=== PATIENT | female | born 1980 | race Caucasian/White ===

== ENCOUNTER 2016-11-03 23:22 | Emergency (ER) | payer OTHER ==
[2016-11-04 00:40] LABS: Basophils % (Auto) 0.8 % (0.0-1.8); Eosinophils % (Auto) 1.5 % (0.0-4.3); Hematocrit 36.6 % (30.3-42.9); Hemoglobin 11.5 gm/dl (10.1-14.3); Mean Corpuscular HGB Conc 32 % (30-34); Mean Corpuscular Volume 78 fl (79-97); Platelet Count 313 K/mm3 (140-440); Red Blood Count 4.69 M/mm3 (3.65-5.03); Red Cell Distribution Width 14.7 % (13.2-15.2); White Blood Count 14.7 K/mm3 (4.5-11.0)
[2016-11-04 00:55] LABS: Anion Gap 19 mmol/L; Blood Urea Nitrogen 6 mg/dL (7-17); Calcium 9.5 mg/dL (8.4-10.2); Carbon Dioxide 23 mmol/L (22-30); Chloride 99.4 mmol/L (98-107); Glucose 173 mg/dL (65-100); Potassium 3.9 mmol/L (3.6-5.0); Sodium 137 mmol/L (137-145)
[2016-11-04 01:00] LABS: Mean Corpuscular Hemoglobin 25 pg (28-32)
[2016-11-04] MEDS ORDERED: MOTRIN PO ONE (02:02)
--- NOTE | 2016-11-04 02:06 | Emergency Department Report ---
<LADARIUS LEWIS - Last Filed: 11/04/16 02:02> ED Chest Pain HPI - General Chief Complaint: Chest Pain Stated Complaint: CHEST PAIN Time Seen by Provider: 11/04/16 01:59 Source: patient, family Mode of arrival: Ambulatory Limitations: No Limitations - History of Present Illness Initial Comments: Patient is a 36-year-old female with no past medical history presenting today because of sudden onset left-sided chest pain that sharp and radiating to her left shoulder. Patient states that this pain started at 10 PM while she was not doing any specific activity. She states that the pain is pleuritic on the left side and worse with palpation of the area. She no difficulty breathing, cough, fevers. Has no family history of coronary artery disease. No family history of blood clots. She's not had any recent immobilization, extended bed rest, long trips, no oral contraceptive pills, no history of cigarette smoking. - Related Data Allergies Allergy/AdvReac Type Severity Reaction Status Date / Time No Known Allergies Allergy Verified 11/03/16 23:52 DAVON score - Davon Score Age > 65: (0) No Aspirin use within the Past 7 Days: (0) No 3 or more CAD Risk Factors: (0) No 2 or more Angina events in past 24 hrs: (0) No Known CAD with more than 50% Stenosis: (0) No Elevated Cardiac Markers: (0) No ST Deviation Greater than 0.5mm: (0) No DAVON Score: 0 ED Review of Systems ROS: Stated complaint: CHEST PAIN Other details as noted in HPI Comment: All other systems reviewed and negative Constitutional: denies: chills, fever ENT: denies: ear pain Respiratory: denies: cough, shortness of breath Cardiovascular: chest pain Gastrointestinal: denies: abdominal pain, vomiting Genitourinary: denies: urgency, dysuria Musculoskeletal: denies: back pain Skin: denies: rash Neurological: denies: headache Psychiatric: denies: anxiety ED Past Medical Hx - Past Medical History Previous Medical History?: Yes Hx Hypertension: Yes - Surgical History Past Surgical History?: No - Social History Smoking Status: Never Smoker Substance Use Type: None ED Physical Exam - General Limitations: No Limitations General appearance: alert, in no apparent distress - Head Head exam: Present: atraumatic - ENT ENT exam: Present: normal exam - Neck Neck exam: Present: normal inspection - Respiratory Respiratory exam: Present: normal lung sounds bilaterally. Absent: respiratory distress - Cardiovascular Cardiovascular Exam: Present: regular rate, normal rhythm - GI/Abdominal GI/Abdominal exam: Present: soft. Absent: distended, tenderness - Neurological Exam Neurological exam: Present: alert - Psychiatric Psychiatric exam: Present: normal affect - Skin Skin exam: Present: intact ED Course Vital Signs 11/03/16 23:52 Temperature 98.7 F Pulse Rate 94 H Respiratory 20 Rate Blood Pressure 143/87 O2 Sat by Pulse 100 Oximetry ED Medical Decision Making - Lab Data Result diagrams: 11/04/16 00:11 11/04/16 00:11 - Medical Decision Making Labs ordered, chest x-ray and d-dimer added. Patient has a low risk for a PE but does present with pleuritic chest pains or d-dimer will be used to rule out for considered the diagnosis of pulmonary embolism. Motrin also ordered as the pain appears to be muscle wall. EKG shows normal sinus rhythm without any ST-T changes. Critical care attestation.: If time is entered above; I have spent that time in minutes in the direct care of this critically ill patient, excluding procedure time. ED Disposition Clinical Impression: Chest pain Qualifiers: Chest pain type: chest pain on breathing Qualified Code(s): R07.1 - Chest pain on breathing Disposition: DISCHARGED TO HOME OR SELFCARE Condition: Stable Instructions: Chest Pain (ED) Referrals: PRIMARY CARE,MD [Primary Care Provider] - 3-5 Days <MIRELLA HOGAN I. - Last Filed: 11/04/16 06:29> ED Medical Decision Making - Lab Data Result diagrams: 11/04/16 00:11 11/04/16 00:11 ED Disposition Is pt being admited?: No
[2016-11-04] MEDS ORDERED: NACL ONE (03:13)
--- NOTE | 2016-11-04 05:55 | XRay Report ---
FINAL REPORT PROCEDURE: CT ANGIO CHEST TECHNIQUE: Computerized tomographic angiography of the chest was performed after the IV injection of iodinated nonionic contrast including image processing. The image data was postprocessed using 2-dimensional multiplanar reformatted (MPR) and 3-dimensional (MIP and/or volume rendered) techniques. HISTORY: pleuritic cp dimer COMPARISON: No prior studies are available for comparison. FINDINGS: Heart and pericardium: Normal. Thoracic aorta: Normal. Pulmonary vasculature: Normal. Lymph nodes: No enlarged thoracic lymph nodes. Lungs: Lungs are clear. No consolidation, effusion or pneumothorax. Pleural space: No effusion, thickening, or pneumothorax. Musculoskeletal structures: No significant abnormality. Upper abdominal structures: No significant abnormality. IMPRESSION: No evidence of pulmonary arterial emboli. The lungs are clear without infiltrate or effusion.
[2016-11-04 06:51] VITALS: BP 113/74
== END 2016-11-04 06:35 | disposition home or self-care (01) ==
LOC: ED 23:22
DX: R07.9 Chest pain, unspecified (principal); R07.1 Chest pain on breathing; I10 Essential (primary) hypertension
CPT/HCPCS: 36415; 71020; 71275; 80048; 81025; 83880; 84484; 85025; 85379; 93005; 93010; 99285; Q9967